=== PATIENT | male | born 1990 | race African-American/Black ===

== ENCOUNTER 2016-08-30 23:52 | Emergency (ER) | payer MEDICAID ==
[~2016-08-30] VITALS: Ht 170.2 cm; Wt 68.0 kg
[~2016-08-30 23:52] MED LIST: UNKNOWN MEDS
[2016-08-31] MEDS ORDERED: SODIUM CHLORIDE 0.9% 1,000 ML IV ONE (00:30)
[2016-08-31 00:50] LABS: BASOPHILS % 0.5 % (0.0-2.0); EOSINOPHILS % 0.3 % (0.0-5.0); HEMATOCRIT. 41.7 % (42.0-52.0); HEMOGLOBIN. 14.1 g/dL (14.0-18.0); LYMPHOCYTES % 15.4 % (20.0-50.0); MEAN CORPUSCULAR HEMOGLOBIN 30.2 pg (28.0-32.0); MEAN CORPUSCULAR VOLUME 89.5 fL (80.0-94.0); MEAN PLATELET VOLUME 7.1 fl (7.4-10.4); MONOCYTES % 4.6 % (2.0-8.0); NEUTROPHILS % 79.2 % (40.0-76.0); PLATELET 271 x1000/uL (130-400); RED BLOOD CELL COUNT 4.65 mill/uL (4.7-6.1); RED CELL DISTRIBUTION WIDTH 13.9 % (11.6-14.6)
[2016-08-31 00:54] LABS: CHLORIDE 102 mEq/L (98-107)
[2016-08-31 00:59] LABS: CARBON DIOXIDE 27 mEq/L (21-32); ETHANOL BLOOD 216 mg/dL
[2016-08-31 02:52] LABS: *AMPHETAMINES SCREEN URINE NEGATIVE (NEGATIVE); *BARBITURATES SCREEN URINE NEGATIVE (NEGATIVE); *BENZODIAZEPINES SCREEN URINE PRESUMTIVE POSITIVE (NEGATIVE); *COCAINE SCREEN URINE NEGATIVE (NEGATIVE); CANNABINOID URINE SCREEN PRESUMTIVE POSITIVE (NEGATIVE); METHADONE URINE SCREEN NEGATIVE (NEGATIVE); OPIATES URINE SCREEN NEGATIVE (NEGATIVE); PHENCYCLIDINE URINE SCREEN NEGATIVE (NEGATIVE)
[2016-08-31 06:47] VITALS: BP 133/69
== END 2016-08-31 06:49 | disposition home or self-care (01) ==
LOC: ER 23:52
DX: S00.83XA Contusion of other part of head, initial encounter (principal); G93.40 Encephalopathy, unspecified; F10.129 Alcohol abuse with intoxication, unspecified; F19.10 Other psychoactive substance abuse, uncomplicated; W19.XXXA Unspecified fall, initial encounter; Y93.89 Activity, other specified; Y92.89 Other specified places as the place of occurrence of the external cause; Y99.8 Other external cause status; Y90.7 Blood alcohol level of 200-239 mg/100 ml
CPT/HCPCS: 36415; 80048; 80305; 80307; 80329; 82962; 85025; 96360; 96361; 99285; G0482; J7030; Z7610; A4315

== ENCOUNTER 2016-09-03 00:17 | Emergency (ER) | payer MEDICAID ==
[~2016-09-03] VITALS: Ht 185.4 cm; Wt 77.0 kg
[2016-09-03 03:41] LABS: BASOPHILS % 0.8 % (0.0-2.0); EOSINOPHILS % 2.7 % (0.0-5.0); HEMATOCRIT. 40.9 % (42.0-52.0); HEMOGLOBIN. 13.9 g/dL (14.0-18.0); LYMPHOCYTES % 39.7 % (20.0-50.0); MEAN CORPUSCULAR HEMOGLOBIN 30.5 pg (28.0-32.0); MEAN CORPUSCULAR VOLUME 90.1 fL (80.0-94.0); MONOCYTES % 8.1 % (2.0-8.0); NEUTROPHILS % 48.7 % (40.0-76.0); PLATELET 233 x1000/uL (130-400); RED BLOOD CELL COUNT 4.54 mill/uL (4.7-6.1); RED CELL DISTRIBUTION WIDTH 13.9 % (11.6-14.6)
[2016-09-03 03:48] LABS: CARBON DIOXIDE 28 mEq/L (21-32); CHLORIDE 109 mEq/L (98-107); ETHANOL BLOOD 124 mg/dL
[2016-09-03] MEDS ORDERED: SODIUM CHLORIDE 0.9% 1,000 ML IV ONE (05:15)
[2016-09-03 07:25] VITALS: BP 119/72
== END 2016-09-03 07:42 | disposition home or self-care (01) ==
LOC: ER 00:24
DX: F10.129 Alcohol abuse with intoxication, unspecified (principal)
CPT/HCPCS: 36415; 80048; 85025; 96360; 99284; G0482; J7030

== ENCOUNTER 2017-01-18 02:23 | Emergency (ER) | payer MEDICAID ==
[~2017-01-18] VITALS: Ht 177.8 cm; Wt 59.0 kg
[2017-01-18] MEDS ORDERED: IBUPROFEN 600MG TABLET PO ONE (05:15)
[2017-01-18] MEDS ORDERED: KETOROLAC 60MG/2ML VIAL IM ONE (08:00)
[2017-01-18 08:37] VITALS: BP 115/66
== END 2017-01-18 08:40 | disposition home or self-care (01) ==
LOC: ER 02:23
DX: M54.2 Cervicalgia (principal); I10 Essential (primary) hypertension
CPT/HCPCS: 72040; 96372; 99284; J1885; Z7610; 90471

== ENCOUNTER 2018-12-21 08:49 | Emergency (ER) | payer SELFPAY ==
[~2018-12-21] VITALS: Ht 182.9 cm; Wt 91.0 kg
[2018-12-21] MEDS: ONDANSETRON HCL 4MG/2ML INJ IV STA (09:29)
[2018-12-21] MEDS: SODIUM CHLORIDE 0.9% 1,000 ML IV ONE (09:29)
[2018-12-21 09:50] LABS: CLARITY URINE CLEAR (CLEAR); COLOR URINE YELLOW (YELLOW); KETONES URINE NEGATIVE (NEGATIVE); LEUKOCYTE ESTERASE URINE NEGATIVE (NEGATIVE); NITRITE URINE NEGATIVE (NEGATIVE); OCCULT BLOOD URINE TRACE (NEGATIVE); PH URINE 5.5 (4.5-8.0); PROTEIN URINE NEGATIVE (NEGATIVE); SPECIFIC GRAVITY URINE 1.034 (1.005-1.030); UROBILINOGEN URINE 0.2 E.U./dL (0.2-1.0)
[2018-12-21 09:53] LABS: BASOPHILS % 0.7 % (0.0-2.0); EOSINOPHILS % 1.3 % (0.0-5.0); HEMATOCRIT. 45.2 % (42.0-52.0); HEMOGLOBIN. 15.4 g/dL (14.0-18.0); LYMPHOCYTES % 29.7 % (20.0-50.0); MEAN CORPUSCULAR HEMOGLOBIN 30.1 pg (28.0-32.0); MEAN PLATELET VOLUME 8.3 fl (7.4-10.4); MONOCYTES % 8.7 % (2.0-8.0); NEUTROPHILS % 59.6 % (40.0-76.0); PLATELET 233 x1000/uL (130-400); RED BLOOD CELL COUNT 5.13 mill/uL (4.7-6.1); RED CELL DISTRIBUTION WIDTH 13.2 % (11.6-14.6)
[2018-12-21 09:56] LABS: CHLORIDE 105 mEq/L (98-107); INR 1.1
[2018-12-21 10:01] LABS: ETHANOL BLOOD < 10 mg/dL
[2018-12-21 10:27] LABS: *AMPHETAMINES SCREEN URINE NEGATIVE (NEGATIVE); *BARBITURATES SCREEN URINE NEGATIVE (NEGATIVE); *BENZODIAZEPINES SCREEN URINE NEGATIVE (NEGATIVE)
[2018-12-21 10:28] LABS: *COCAINE SCREEN URINE NEGATIVE (NEGATIVE); METHADONE URINE SCREEN NEGATIVE (NEGATIVE); OPIATES URINE SCREEN NEGATIVE (NEGATIVE); PHENCYCLIDINE URINE SCREEN NEGATIVE (NEGATIVE)
[2018-12-21 10:29] LABS: CANNABINOID URINE SCREEN PRESUMTIVE POSITIVE (NEGATIVE)
[2018-12-21] MEDS: FAMOTIDINE 20MG/2ML VIAL IV ONE (10:43)
[2018-12-21] MEDS: MAGNESIUM/ALUMINUM HYDROXIDE/SIMETHICONE 30ML UDC PO ONE (10:43)
[2018-12-21 11:53] VITALS: BP 132/68
== END 2018-12-21 11:54 | disposition home or self-care (01) ==
LOC: ER 08:49
DX: R10.13 Epigastric pain (principal); R11.2 Nausea with vomiting, unspecified; I10 Essential (primary) hypertension; Z87.891 Personal history of nicotine dependence; F12.10 Cannabis abuse, uncomplicated
CPT/HCPCS: 36415; 80053; 80305; 80320; 81003; 83690; 85025; 85610; 96361; 96374; 96375; 99283; J2405; J3490; J7030; G0480

== ENCOUNTER 2019-09-01 12:02 | Emergency (ER) | payer MEDICAID ==
[~2019-09-01] VITALS: Ht 180.3 cm; Wt 92.0 kg
[2019-09-01 15:42] LABS: CLARITY URINE CLEAR (CLEAR); COLOR URINE YELLOW (YELLOW); KETONES URINE NEGATIVE (NEGATIVE); LEUKOCYTE ESTERASE URINE NEGATIVE (NEGATIVE); NITRITE URINE NEGATIVE (NEGATIVE); OCCULT BLOOD URINE NEGATIVE (NEGATIVE); PROTEIN URINE NEGATIVE (NEGATIVE); SPECIFIC GRAVITY URINE 1.006 (1.005-1.030); UROBILINOGEN URINE 0.2 E.U./dL (0.2-1.0)
[2019-09-01 16:19] VITALS: BP 144/81
[2019-09-04 04:09] LABS: NEISSERIA GONORRHOEAE NAA Negative (Negative)
== END 2019-09-01 16:21 | disposition home or self-care (01) ==
LOC: ER 12:02
DX: N50.812 Left testicular pain (principal); F12.10 Cannabis abuse, uncomplicated
CPT/HCPCS: 76870; 81003; 87491; 87591; 93976; 99284

== ENCOUNTER 2019-12-21 14:25 | Emergency (ER) | payer MEDICAID ==
[~2019-12-21] VITALS: Ht 177.8 cm; Wt 81.0 kg
[2019-12-21] MEDS ORDERED: ONDANSETRON 4MG ODT PO ONE (14:45)
[2019-12-21 15:33] LABS: HEMATOCRIT. 48.4 % (42.0-52.0); HEMOGLOBIN. 16.3 g/dL (14.0-18.0); MEAN CORPUSCULAR HEMOGLOBIN 30.1 pg (28.0-32.0); MEAN CORPUSCULAR VOLUME 89.1 fL (80.0-94.0); MEAN PLATELET VOLUME 8.5 fl (7.4-10.4); PLATELET 245 x1000/uL (130-400); RED BLOOD CELL COUNT 5.43 mill/uL (4.7-6.1); RED CELL DISTRIBUTION WIDTH 13.2 % (11.6-14.6)
[2019-12-21 15:37] LABS: CHLORIDE 98 mEq/L (98-107)
[2019-12-21 15:40] LABS: ETHANOL BLOOD < 10 mg/dL
[2019-12-21] MEDS ORDERED: SODIUM CHLORIDE 0.9% 1,000 ML IV ONE (16:00)
[2019-12-21 16:02] LABS: CLARITY URINE CLEAR (CLEAR); COLOR URINE YELLOW (YELLOW); KETONES URINE 1+ (NEGATIVE); LEUKOCYTE ESTERASE URINE NEGATIVE (NEGATIVE); NITRITE URINE NEGATIVE (NEGATIVE); OCCULT BLOOD URINE TRACE (NEGATIVE); PROTEIN URINE 1+ (NEGATIVE); SPECIFIC GRAVITY URINE 1.035 (1.005-1.030); UROBILINOGEN URINE 0.2 E.U./dL (0.2-1.0)
[2019-12-21 16:36] LABS: *AMPHETAMINES SCREEN URINE NEGATIVE (NEGATIVE); *BARBITURATES SCREEN URINE NEGATIVE (NEGATIVE); *BENZODIAZEPINES SCREEN URINE NEGATIVE (NEGATIVE); *COCAINE SCREEN URINE NEGATIVE (NEGATIVE); METHADONE URINE SCREEN NEGATIVE (NEGATIVE); OPIATES URINE SCREEN NEGATIVE (NEGATIVE); PHENCYCLIDINE URINE SCREEN NEGATIVE (NEGATIVE)
[2019-12-21 16:37] LABS: CANNABINOID URINE SCREEN PRESUMTIVE POSITIVE (NEGATIVE)
[2019-12-21 16:47] LABS: PLATELET ESTIMATE NORMAL
[2019-12-21 17:55] VITALS: BP 130/80
== END 2019-12-21 18:02 | disposition home or self-care (01) ==
LOC: ER 14:33
DX: F10.129 Alcohol abuse with intoxication, unspecified (principal); Y90.0 Blood alcohol level of less than 20 mg/100 ml; R11.10 Vomiting, unspecified; R59.1 Generalized enlarged lymph nodes
CPT/HCPCS: 36415; 71045; 76700; 80048; 80305; 80320; 81003; 83605; 83690; 85025; 87040; 93005; 96374; 99285; J7030; Q0162; G0480

== ENCOUNTER 2020-03-19 07:30 | Emergency (ER) | payer MEDICAID, OTHER ==
[~2020-03-19] VITALS: Ht 182.9 cm; Wt 77.0 kg
[2020-03-19] MEDS ORDERED: ONDANSETRON 4MG ODT PO NR (08:10)
[2020-03-19] MEDS ORDERED: MAGNESIUM/ALUMINUM HYDROXIDE/SIMETHICONE 30ML UDC PO NR (08:10)
[2020-03-19 09:04] LABS: BASOPHILS % 0.5 % (0.0-2.0); EOSINOPHILS % 1.7 % (0.0-5.0); HEMATOCRIT. 39.8 % (42.0-52.0); HEMOGLOBIN. 13.2 g/dL (14.0-18.0); LYMPHOCYTES % 29.6 % (20.0-50.0); MEAN CORPUSCULAR HEMOGLOBIN 29.5 pg (28.0-32.0); MEAN CORPUSCULAR VOLUME 89.1 fL (80.0-94.0); MEAN PLATELET VOLUME 7.8 fl (7.4-10.4); MONOCYTES % 10.5 % (2.0-8.0); NEUTROPHILS % 57.7 % (40.0-76.0); PLATELET 216 x1000/uL (130-400); RED BLOOD CELL COUNT 4.47 mill/uL (4.7-6.1); RED CELL DISTRIBUTION WIDTH 13.5 % (11.6-14.6)
[2020-03-19 09:14] LABS: INR 1.1; PROTHROMBIN TIME 11.1 sec (9.6-11.0)
[2020-03-19 09:23] LABS: CHLORIDE 108 mEq/L (98-107)
[2020-03-19] MEDS ORDERED: IOHEXOL-300 100 ML BOTTLE ONE (10:00)
[2020-03-19] MEDS ORDERED: MAGN296S70 MT (10:49)
[2020-03-19] MEDS ORDERED: NA P133E4 RC (10:49)
[2020-03-19 11:36] VITALS: BP 110/78
== END 2020-03-19 11:39 | disposition home or self-care (01) ==
LOC: ER 07:30
DX: K56.41 Fecal impaction (principal); F12.10 Cannabis abuse, uncomplicated
CPT/HCPCS: 36415; 74177; 80053; 83690; 85025; 85610; 99285; Q0162; Q9967; Z7610

== ENCOUNTER 2020-06-17 08:42 | Emergency (ER) | payer MEDICAID, OTHER ==
[~2020-06-17] VITALS: Ht 182.9 cm; Wt 82.0 kg
[~2020-06-17 08:42] MED LIST changes: +MAGN296S70 MT; +NA P133E4 RC
[2020-06-17] MEDS ORDERED: CIPDEX LEFT EAR (09:52)
[2020-06-17 09:58] VITALS: BP 136/92
== END 2020-06-17 09:59 | disposition home or self-care (01) ==
LOC: ER 08:42
DX: H92.02 Otalgia, left ear (principal)
CPT/HCPCS: 99281

== ENCOUNTER 2020-10-30 23:41 | Emergency (ER) | payer MEDICAID, OTHER ==
[~2020-10-30] VITALS: Ht 180.3 cm; Wt 85.2 kg
[~2020-10-30 23:41] MED LIST changes: +CIPDEX LEFT EAR
[2020-10-30 23:51] VITALS: BP 135/59
[2020-10-31] MEDS ORDERED: DOXY100C2 MT (06:47)
== END 2020-10-31 00:20 | disposition left against medical advice (07) ==
LOC: ER 23:41
DX: Z53.21 Procedure and treatment not carried out due to patient leaving prior to being seen by health care provider (principal)

== ENCOUNTER 2020-10-31 03:18 | Emergency (ER) | payer MEDICAID ==
[2020-10-31] MEDS ORDERED: HYDROCODONE/ACETAMINOPHEN 5/325MG TABLET PO ONE (03:45)
[2020-10-31 04:00] VITALS: BP 130/69
[2020-10-31 04:10] LABS: CLARITY URINE CLEAR (CLEAR); COLOR URINE YELLOW (YELLOW); KETONES URINE NEGATIVE (NEGATIVE); LEUKOCYTE ESTERASE URINE NEGATIVE (NEGATIVE); NITRITE URINE NEGATIVE (NEGATIVE); OCCULT BLOOD URINE NEGATIVE (NEGATIVE); PROTEIN URINE NEGATIVE (NEGATIVE); SPECIFIC GRAVITY URINE 1.014 (1.005-1.030); UROBILINOGEN URINE 0.2 E.U./dL (0.2-1.0)
[2020-10-31] MEDS ORDERED: CEFTRIAXONE SODIUM 500 MG/VIAL IM ONE (06:45)
[2020-10-31] MEDS ORDERED: DOXY100C2 MT (06:47)
[2020-10-31] MEDS ORDERED: LIDOCAINE HCL 1% 20ML VIAL (Pyxis) INJ INFIL ONE (07:00)
[2020-11-03 08:10] LABS: NEISSERIA GONORRHOEAE NAA Negative (Negative)
== END 2020-10-31 08:00 | disposition home or self-care (01) ==
LOC: ER 03:18
DX: N45.2 Orchitis (principal)
CPT/HCPCS: 76870; 81003; 87491; 87591; 93976; 96372; 99284; J0696; J3490

== ENCOUNTER 2020-11-06 15:21 | Emergency (ER) | payer MEDICAID ==
[~2020-11-06] VITALS: Ht 180.3 cm; Wt 90.0 kg
[~2020-11-06 15:21] MED LIST changes: +DOXY100C2 MT
[2020-11-06] MEDS ORDERED: DOXY100C2 MT (18:48)
[2020-11-06 18:54] VITALS: BP 128/70
== END 2020-11-06 18:54 | disposition home or self-care (01) ==
LOC: ER 15:21
DX: A64 Unspecified sexually transmitted disease (principal); Z76.0 Encounter for issue of repeat prescription
CPT/HCPCS: 99283

== ENCOUNTER 2020-12-17 11:39 | Emergency (ER) | payer MEDICAID, OTHER ==
[~2020-12-17] VITALS: Ht 180.3 cm; Wt 79.0 kg
[~2020-12-17 11:39] MED LIST changes: -DOXY100C2 MT; +DOXY100C5 MT
[2020-12-17] MEDS ORDERED: FAMOTIDINE 20MG TABLET PO ONE (12:15)
[2020-12-17] MEDS ORDERED: MAGNESIUM/ALUMINUM HYDROXIDE/SIMETHICONE 30ML UDC PO ONE (12:15)
[2020-12-17] MEDS ORDERED: ONDANSETRON 4MG ODT PO ONE (12:15)
[2020-12-17] MEDS ORDERED: FAMO40TA7 MT (13:34)
[2020-12-17] MEDS ORDERED: ONDA4TAB11 PO (13:34)
[2020-12-17 13:54] VITALS: BP 115/61
== END 2020-12-17 13:58 | disposition home or self-care (01) ==
LOC: ER 11:39
DX: K21.9 Gastro-esophageal reflux disease without esophagitis (principal)
CPT/HCPCS: 71045; 93005; 99284; Q0162

== ENCOUNTER 2021-09-25 11:46 | Emergency (ER) | payer OTHER ==
[~2021-09-25] VITALS: Ht 182.9 cm; Wt 89.0 kg
[~2021-09-25 11:46] MED LIST changes: +FAMO40TA7 MT; +ONDA4TAB11 PO
[2021-09-25 11:57] VITALS: BP 147/83
[2021-09-25] MEDS ORDERED: KETOROLAC 60MG/2ML VIAL IM ONE (14:15)
[2021-09-25] MEDS ORDERED: CEFTRIAXONE SODIUM 1 G/VIAL IM ONE (14:15)
[2021-09-25] MEDS ORDERED: IBUP-2029 MT (19:27)
== END 2021-09-25 15:03 | disposition left against medical advice (07) ==
LOC: ER 12:03
DX: N50.812 Left testicular pain (principal); Z53.21 Procedure and treatment not carried out due to patient leaving prior to being seen by health care provider
CPT/HCPCS: 76870; 93976; 99281

== ENCOUNTER 2021-09-25 16:52 | Emergency (ER) | payer OTHER ==
[~2021-09-25] VITALS: Ht 182.9 cm; Wt 89.0 kg
[2021-09-25] MEDS ORDERED: CEFTRIAXONE SODIUM 500 MG/VIAL IM ONE (18:00)
[2021-09-25] MEDS ORDERED: AZITHROMYCIN 500 MG TABLET PO ONE (18:00)
[2021-09-25 19:10] LABS: CLARITY URINE CLEAR (CLEAR); COLOR URINE YELLOW (YELLOW); KETONES URINE TRACE (NEGATIVE); LEUKOCYTE ESTERASE URINE NEGATIVE (NEGATIVE); NITRITE URINE NEGATIVE (NEGATIVE); OCCULT BLOOD URINE TRACE (NEGATIVE); PH URINE 5.5 (4.5-8.0); PROTEIN URINE NEGATIVE (NEGATIVE); SPECIFIC GRAVITY URINE 1.023 (1.005-1.030); UROBILINOGEN URINE 0.2 E.U./dL (0.2-1.0)
[2021-09-25] MEDS ORDERED: IBUP-2029 MT (19:27)
[2021-09-25 19:31] VITALS: BP 123/78
== END 2021-09-25 19:31 | disposition home or self-care (01) ==
LOC: ER 16:52
DX: N50.812 Left testicular pain (principal); Z20.2 Contact with and (suspected) exposure to infections with a predominantly sexual mode of transmission
CPT/HCPCS: 76870; 81003; 81025; 87491; 87591; 93976; 99284; J0696

== ENCOUNTER 2022-02-23 10:54 | Emergency (ER) | payer MEDICAID, OTHER ==
[~2022-02-23] VITALS: Ht 182.9 cm; Wt 80.0 kg
[~2022-02-23 10:54] MED LIST changes: +IBUP-2029 MT
[2022-02-23 11:10] VITALS: BP 124/55
[2022-02-23] MEDS ORDERED: PERM59LI8 TP (14:26)
== END 2022-02-23 15:25 | disposition home or self-care (01) ==
LOC: ER 10:54
DX: B85.0 Pediculosis due to Pediculus humanus capitis (principal)
CPT/HCPCS: 99281